=== PATIENT | female | born 1990 | race Caucasian/White ===

== ENCOUNTER → 2021-12-06 | Outpatient (CLI) | payer BC ==
[~2021-12-06] MED LIST: PREN-115 PO
--- NOTE | 2021-12-06 15:08 | Diagnostic Imaging Report ---
INDICATION: Knee pain and swelling. FINDINGS: The alignment is normal. No fracture or dislocation. No joint effusion. Soft tissues are unremarkable. IMPRESSION: No focal abnormality left knee. Dictated by: Dictated on workstation # [id number]
== END ==
LOC: RAD 13:18
PROVIDERS: ATTEND Family Medicine
DX: M25.562 Pain in left knee (principal); M25.462 Effusion, left knee
CPT/HCPCS: 73562

== ENCOUNTER → 2021-12-13 | Outpatient (CLI) | payer BC ==
--- NOTE | 2021-12-13 11:30 | Diagnostic Imaging Report ---
INDICATION: Left knee pain, effusion. EXAMINATION: Left knee MRI on 12/13/2021. FINDINGS: The extensor mechanism appears intact. The ACL and PCL are intact. The lateral collateral ligamentous complex is intact. The MCL is intact. There is mild undersurface fraying along the posterior horn of the medial meniscus. The remaining medial meniscus is unremarkable. There is diffuse abnormal signal intensity throughout the anterior horn of the lateral meniscus, consistent with a tear. Adjacent heterogeneous T2 hyperintensity may be a developing parameniscal cyst. There is mild fissuring and loss of cartilage overlying the medial patellar facet. There is mild thinning of the cartilage in the lateral compartment. Cartilage in the medial joint space appears maintained. There is a small joint effusion. There is a tiny slit-like Sanderson's cyst. There is no acute osseous abnormality. IMPRESSION: 1. Tear of the anterior horn of the lateral meniscus with adjacent heterogeneous T2 hyperintensity, possibly a developing parameniscal cyst. 2. Undersurface fraying along the posterior horn of the medial meniscus. 3. Ligaments and tendons are intact. 4. Degenerative findings are most marked within the patellofemoral joint space with an underlying joint effusion noted. Dictated by: Dictated on workstation # [id number]
== END ==
LOC: RAD 09:16
PROVIDERS: ATTEND Family Medicine
DX: S83.282A Other tear of lateral meniscus, current injury, left knee, initial encounter (principal); M17.12 Unilateral primary osteoarthritis, left knee
CPT/HCPCS: 73721